=== PATIENT | female | born 1940 | race Caucasian/White ===

== ENCOUNTER 2018-03-13 17:02 | Inpatient (IN) ==
[2018-03-13] MEDS ORDERED: Acetaminophen 500 MG Tablet PO PRN (20:59)
[2018-03-13] MEDS ORDERED: Morphine Sulfate Inj 2 MG/ML Vial IV.PUSH PRN (21:30)
--- NOTE | 2018-03-13 23:40 | P.HPIM ---
[facility] of Present Illness [facility]ician: UNKNOWN Chief Complaint: Dizziness History of Present Illness: Ms. Gracia is a pleasant 78-year-old female with a history of atrial fibrillation, anorexia, hyperlipidemia, hypertension, type 2 diabetes mellitus, and dementia who presented to the emergency room and [facility] with her daughter who reported that she had been weak with nausea and vomiting 1 week. Patient was found to have a troponin I of 24.1 and a CK-MB of 12.2 and was transferred to [facility] for treatment and management of NSTEMI. The patient is seen on the [facility] with no family at her bedside. She tells me that she has been experiencing dizziness for the past 2 days. She denies any syncope, chest pain, shortness of breath, palpitations, fever, chills, nausea, vomiting, or diarrhea. She denies any urinary symptoms. She reports that she has had problems off and on with dizziness for years and that her dizziness has now resolved. She is a limited historian because of her dementia. She denies any family history of coronary artery disease. . Inpatient Certification: I certify that the inpatient services were ordered in accordance with Medicare regulations governing the order. This includes certification that hospital inpatient services are reasonable and necessary and in the case of services not specified as inpatient-only under 42 CFR 419.22(n), that they are appropriately provided as inpatient services in accordance to with the 2-midnight benchmark under 43 CFR 412.3(e) Estimated Total Length of Stay (Days): 3 Plans for Post Hospital Care: Not yet determined Review of Systems All other systems reviewed negative except as stated in [facility] - History History Provided By: Patient, Family Member - Medical History Medical History: Medical History (Last Reviewed 03/14/18 @ 00:17 by VERONICA Robledo) Afib Anorexia Cholecystectomy planned Hyperlipidemia Hypertension Memory loss Type 2 diabetes mellitus - Surgical History Surgical History: Surgical History (Last Reviewed 03/14/18 @ 00:17 by VERONICA Robledo) S/P breast lumpectomy S/P thyroid biopsy - Family History Family History: Family History (Last Updated 03/14/18 @ 00:17 by VERONICA Robledo) Other No family history of coronary artery disease - Tobacco History Second Hand Smoke Exposure: No Smoking Status: Never smoker - Alcohol History How Often Do You Have a Drink Containing Alcohol: Monthly or less - Substance Use History Substance History: No History of Abuse Medications and Allergies Active Medications: Active Medications Acetaminophen (Tylenol) 500 mg PO Q4H PRN PRN Reason: HEADACHE Aspirin (Aspirin) 325 mg PO DAILY ADELE Famotidine (Pepcid) 10 mg PO BID ADELE Sodium Chloride (Ns Inj) 1,000 mls @ 75 mls/hr IV.CONT .[id number] [facility] Heparin Sodium/Dextrose (Heparin/D5w 25,000 U/250 Ml) 25,000 unit in 250 mls @ 0 mls/hr IV.CONT TITRATE PRN; Protocol PRN Reason: Per Protocol Morphine Sulfate (Morphine Inj) 2 mg IV.PUSH Q3H PRN PRN Reason: PAIN SCALE 6 TO 10 Nitroglycerin (Nitrostat Sl) 0.4 mg SL Q5M PRN PRN Reason: ANGINA Sodium Chloride (Ns Flush) 2 ml IV.FLUSH BID ADELE Sodium Chloride (Ns Flush) 2 ml IV.FLUSH PRN PRN PRN Reason: FLUSH AFTER USING IV ACCESS Allergies Allergy/AdvReac Type Severity Reaction Status Date / Time No Known Allergies Allergy Verified 03/13/18 18:00 Home Medications Medication Instructions Recorded Confirmed Type digoxin [Digitek] 0.125 mg PO DAILY 03/13/18 03/13/18 History losartan 25 mg PO DAILY 03/13/18 03/13/18 History lovastatin 20 mg PO DAILY 03/13/18 03/13/18 History megestrol 40 mg PO TID 03/13/18 03/13/18 History memantine [Namenda] 5 mg PO DAILY 03/13/18 03/13/18 History metformin 500 mg PO DAILY 03/13/18 03/13/18 History prochlorperazine maleate 5 mg PO Q6-8H PRN 03/13/18 03/13/18 History Exam Vital signs: Intake & Output 03/13/18 03/13/18 03/14/18 06:59 18:59 06:59 Weight 43.3 kg Narrative: GENERAL: This is a cachectic elderly female patient, in no apparent distress. SKIN: No rashes. Cool and dry. HEAD: Atraumatic. Normocephalic. EYES: No scleral icterus. No injection or drainage. ENT: Nose without bleeding, purulent drainage. NECK: Trachea midline. No JVD. CARDIOVASCULAR: Regular rate and rhythm with 2 out of 6 systolic murmur heard throughout precordium but best auscultated at cardiac apex. RESPIRATORY: Clear to auscultation. Breath sounds equal bilaterally. No wheezes , rales, or rhonchi. GASTROINTESTINAL: Abdomen soft, non-tender, nondistended. No guarding. MUSCULOSKELETAL: Extremities without clubbing, cyanosis, or edema. No calf tenderness. NEUROLOGICAL: Awake and alert. Motor and sensory grossly within normal limits. Normal speech. . Results - Labs Labs: WBC 12.5, hemoglobin 14.1, hematocrit 41.0, platelet 223 Sodium 138, potassium 4.4, BUN 42, creatinine 1.40, glucose 317, magnesium 2.3, phosphate 3.7 AST elevated at 137, ALT normal at 35 T CK 673, CK-MB percent 12.2, troponin I 24.1 Caprini VTE Risk Assessment Caprini VTE Risk Assessment: Moderate/High Risk (score >= 2) Caprini Risk Assessment Model: Point Value = 1 Point Value = 2 Point Value = 3 Point Value = 5 Age 41-60 Minor surgery BMI > 25 kg/m2 Swollen legs Varicose veins or History of unexplained or recurrent spontaneous Oral contraceptives or hormone replacement Sepsis (< 1 month) Serious lung disease, including pneumonia (< 1 month) Abnormal pulmonary function Acute myocardial infarction Congestive heart failure (< 1 month) History of inflammatory bowel disease Medical patient at bed rest Age 61-74 Arthroscopic surgery Major open surgery (> 45 min) Laparoscopic surgery (> 45 min) Malignancy Confined to bed (> 72 hours) Immobilizing plaster cast Central venous access Age >= 75 History of VTE Family history of VTE Factor V Leiden Prothrombin [id number] Lupus anticoagulant Anticardiolipin antibodies Elevated serum homocysteine Heparin-induced thrombocytopenia Other congenital or acquired thrombophilia Stroke (< 1 month) Elective arthroplasty Hip, pelvis, or leg fracture Acute spinal cord injury (< 1 month) Prophylaxis Regimen: Total Risk Factor Score Risk Level Prophylaxis Regimen 0-1 Low Early ambulation 2 Moderate Order ONE of the following: *Sequential Compression Device (SCD) *Heparin 5000 units SQ BID 3-4 Higher Order ONE of the following medications: *Heparin 5000 units SQ TID *Enoxaparin/Lovenox 40 mg SQ daily (WT < 150 kg, CrCl > 30 mL/min) *Enoxaparin/Lovenox 30 mg SQ daily (WT < 150 kg, CrCl > 10-29 mL/min) *Enoxaparin/Lovenox 30 mg SQ BID (WT < 150 kg, CrCl > 30 mL/min) AND/OR *Sequential Compression Device (SCD) 5 or more Highest Order ONE of the following medications: *Heparin 5000 units SQ TID (Preferred with Epidurals) *Enoxaparin/Lovenox 40 mg SQ daily (WT < 150 kg, CrCl > 30 mL/min) *Enoxaparin/Lovenox 30 mg SQ daily (WT < 150 kg, CrCl > 10-29 mL/min) *Enoxaparin/Lovenox 30 mg SQ BID (WT < 150 kg, CrCl > 30 mL/min) AND *Sequential Compression Device (SCD) Assessment and Plan - Plan Ms. Gracia is a pleasant 78-year-old female with a history of atrial fibrillation, anorexia, hyperlipidemia, hypertension, type 2 diabetes mellitus, and dementia who presented to the emergency room and [place] with her daughter who reported that she had been weak with nausea and vomiting 1 week. Patient was found to have a troponin I of 24.1 and a CK-MB of 12.2 and was transferred to [facility] for treatment and management of NSTEMI. NSTEMI -Consult cardiology-appreciate assistance; ER physician discussed case with Dr. Manzo via telephone -Heparin drip -As needed nitroglycerin and morphine for pain -n.p.o. -Continuous cardiac telemetry to monitor for arrhythmia -Serial EKGs and cardiac enzymes - initial troponin I 24.1 - continue to trend; EKG personally reviewed - shows NSR with nonspecific twave abnormalities ALICIA secondary to dehydration -BUN 42, creatinine 1.40 -IV fluid hydration with normal saline at 75 cc/hour -Repeat BMP in a.m. and monitor renal function and electrolytes -Avoid nephrotoxins as much as possible Abnormal UA -Patient asymptomatic for UTI, afebrile, normal heart rate - but has a mildly elevated WBC (see below) -await urine culture results for further treatment- patient received one dose of Keflex in [place] ED Leukocytosis - hemoconcentration vs stress vs infection -repeat CBC in a.m. DVT prophylaxis -Heparin drip Discussed Condition With: Patient, RN, and Dr. Nielson
[2018-03-13] MEDS ORDERED: Dextrose 50% in Water 50 ML Vial IV.PUSH PRN (23:41)
[2018-03-14 02:58] LABS: Hematocrit 37.2 % (35.0-46.0); Mean Corpuscular HGB Conc 34.9 % (32.0-36.0); Mean Corpuscular Hemoglobin 31.6 pg (27.0-34.0); Mean Corpuscular Volume 90.6 fL (80.0-100.0); Red Blood Count 4.11 mil/mm3 (4.00-5.30); Red Cell Distribution Width 13.7 % (11.6-17.2); White Blood Count 12.9 th/mm3 (4.0-11.0)
[2018-03-14 02:59] LABS: Baso % (Auto) 0.2 % (0.0-2.0); Eos % (Auto) 0.2 % (0.0-4.0); Lymph % (Auto) 11.6 % (9.0-44.0); Mean Platelet Volume 9.8 fL (7.0-11.0); Mono % (Auto) 10.8 % (0.0-8.0); Neut % (Auto) 77.2 % (16.0-70.0); Platelet Count 176 th/mm3 (150-450)
[2018-03-14 03:00] LABS: Lymph # (Auto) 1.5 th/mm3 (1.0-4.8); Mono # (Auto) 1.4 th/mm3 (0.0-0.9)
[2018-03-14 03:14] LABS: Anion Gap 10 meq/L (5-15); Carbon Dioxide 25.1 meq/L (21.0-32.0); Chloride 105 meq/L (98-107); Potassium 3.8 meq/L (3.5-5.1); Sodium 140 meq/L (136-145)
[2018-03-14 03:15] LABS: Alanine Aminotransferase 27 U/L (10-53); Aspartate Aminotransferase 96 U/L (15-37); Blood Urea Nitrogen 38 mg/dL (7-18); Calcium 8.3 mg/dL (8.5-10.1); Creatine Kinase 401 U/L (26-192); Glomerular Filtration Rate 48 mL/min (>89); Glucose,Random 218 mg/dL (74-106)
[2018-03-14 03:16] LABS: Albumin 3.2 g/dL (3.4-5.0); Total Protein 6.4 g/dL (6.4-8.2)
[2018-03-14 03:17] LABS: Alkaline Phosphatase 33 U/L (45-117)
[2018-03-14 03:59] LABS: INR 1.2 Ratio; Prothrombin Time 12.2 sec (9.8-11.6)
[2018-03-14] MEDS: Sod Chloride 0.9% Inj 1,000 ML IV.CONT SCH ×2 (04:35→12:49)
[2018-03-14] MEDS: Insulin NovoLOG Aspart Correctional Sugar Inj SQ SCH ×5 (04:36→21:45)
[2018-03-14] MEDS: Famotidine 20 MG Tablet PO SCH ×3 (04:37→21:09)
[2018-03-14 05:45] LABS: Troponin I 20.6 ng/mL (0.02-0.05)
[2018-03-14 08:15] LABS: Creatine Kinase MB 41.6 ng/mL (0.5-3.6)
[2018-03-14 08:20] LABS: CKMB Percent 10.4 % (0.0-4.0)
[2018-03-14] MEDS: Aspirin 325 MG Tablet PO SCH (09:13)
--- NOTE | 2018-03-14 11:05 | MB ---
cc: Noel Manzo MD DATE: 03/14/2018 REASON FOR CONSULTATION: [id number] myocardial infarction. HISTORY OF PRESENT ILLNESS: The patient is a pleasant 78-year-old woman who is an extremely poor historian. I was called from the [facility] yesterday. The emergency room physician notified me that the patient presented with vague abdominal symptoms; no real chest pain, but had elevated troponins. She was sent to be admitted at [place] for a [id number] MS. This morning, the patient looks very well. She is completely asymptomatic. She cannot tell me exactly why she presented to the hospital yesterday. PAST MEDICAL HISTORY: Unclear as the patient is a very poor historian. Past medical history per the chart includes AFib, hyperlipidemia, hypertension, memory loss, diabetes. CURRENT MEDICATIONS: 1. Aspirin 325 mg daily. 2. Pepcid. 3. Heparin drip. ALLERGIES: NO KNOWN DRUG ALLERGIES. PHYSICAL EXAMINATION: VITAL SIGNS: Afebrile, pulse 60, respiratory rate 16, BP 106/54, saturating 99 on room air. GENERAL: Pleasant, elderly woman, in no distress. NECK: No JVD. LUNGS: Clear to auscultation bilaterally. CARDIOVASCULAR: Regular rate and rhythm, a 3/6 systolic murmur is appreciated both at the apex and right upper sternal border. ABDOMEN: Benign. EXTREMITIES: No edema. LABORATORY DATA: White count 12.9, hematocrit 37.2, platelets 176. Sodium 140, potassium 3.8, chloride 105, bicarbonate 25.1, BUN 38, creatinine 1.1, glucose 218. Cardiac enzymes are positive with troponin peaking at 22.5. INR is 1.2. EKG shows sinus rhythm with occasional PVCs and nonspecific ST changes. IMPRESSION: [id number] myocardial infarction. The patient presents with apparently vague abdominal symptoms and laboratory data consistent with an acute ST-elevation myocardial infarction. I do not currently know the patient's cardiac history other than what was written in the chart, as there is no one available to speak with me. Regardless, the patient appears well enough for cardiac catheterization and given her very high troponin elevation. I think it is reasonable. I will ask my partner, Dr. Garcia to evaluate for this. Thank you for the opportunity to participate in this patient's care. MD nAa Gardiner , 09:04 AM , 09:10 AM
[2018-03-14] MEDS ORDERED: diazePAM 5 MG Tablet PO SCH (11:30)
--- NOTE | 2018-03-14 12:54 | P.PN ---
Subjective Interval history: Follow-up non-ST elevation [place] March 14, 2018-she is seen in the presence of her daughter and son-in-law, no report of any chest pain or abdominal discomfort this a.m. Per daughter, patient had an appointment with pulmonary medicine for evaluation of her lung spots. Denies any history of hemoptysis. Physical Exam Vital signs: Vital Signs 03/14/18 00:00 03/14/18 00:37 03/14/18 01:00 Temperature 98.9 F Pulse Rate 88 102 H 86 Respiratory Rate 18 Blood Pressure 117/60 Pulse Oximetry 91 L 03/14/18 02:00 03/14/18 03:00 03/14/18 04:00 Temperature 97.4 F L Pulse Rate 86 81 80 Respiratory Rate 18 Blood Pressure 106/51 L Pulse Oximetry 97 03/14/18 05:00 03/14/18 06:00 03/14/18 07:00 Temperature Pulse Rate 76 78 80 Respiratory Rate Blood Pressure Pulse Oximetry 03/14/18 07:55 03/14/18 08:00 03/14/18 09:00 Temperature 97.4 F L Pulse Rate 60 80 80 Respiratory Rate 16 Blood Pressure 106/54 L Pulse Oximetry 99 03/14/18 10:00 Temperature Pulse Rate 76 Respiratory Rate Blood Pressure Pulse Oximetry Intake & Output 03/13/18 03/14/18 03/14/18 18:59 06:59 18:59 Intake Total 120 / 120 Output Total 400 / 400 Balance -280 / -280 Weight 43.3 kg Intake: Oral 120 / 120 Output: Urine 400 / 400 Other: Date of Last Bowel Movement 03/13/18 Narrative: GENERAL: NAD SKIN: Warm and dry. HEAD: Normocephalic. EYES: No scleral icterus. No injection or drainage. NECK: Supple, trachea midline. No JVD or lymphadenopathy. CARDIOVASCULAR: Regular rate and rhythm without murmurs, gallops, or rubs. RESPIRATORY: Breath sounds equal bilaterally. No accessory muscle use. GASTROINTESTINAL: Abdomen soft, non-tender, nondistended. MUSCULOSKELETAL: No cyanosis, or edema. BACK: Nontender without obvious deformity. No CVA tenderness. Results - Labs CBC & Chem 7: 03/14/18 02:09 03/14/18 02:09 Laboratory Results - last 24 hr 03/13/18 03/14/18 03/14/18 02:09 02:09 02:09 WBC 12.9 H RBC 4.11 Hgb 13.0 Hct 37.2 MCV 90.6 MCH 31.6 MCHC 34.9 RDW 13.7 Plt Count 176 MPV 9.8 Neut % (Auto) 77.2 H Lymph % (Auto) 11.6 [place] % (Auto) 10.8 H Eos % (Auto) 0.2 Baso % (Auto) 0.2 Neut # (Auto) 10.0 H Lymph # (Auto) 1.5 [place] # (Auto) 1.4 H Eos # (Auto) 0.0 Baso # (Auto) 0.0 WBC Differential . Differential Comment Auto diff final PT 12.2 H INR 1.2 APTT Sodium 140 Potassium 3.8 Chloride 105 Carbon Dioxide 25.1 Anion Gap 10 BUN 38 H Creatinine 1.10 H Estimated GFR 48 L POC Glucose Random Glucose 218 H Calcium 8.3 L D Total Bilirubin 0.6 AST 96 H ALT 27 Alkaline Phosphatase 33 L Total Creatine Kinase 401 H CK-MB (CK-2) 41.6 H CK-MB (CK-2) % 10.4 H* Troponin I 22.50 H* D Total Protein 6.4 D Albumin 3.2 L D 03/14/18 03/14/18 03/14/18 02:09 03:55 04:31 WBC RBC Hgb Hct MCV MCH MCHC RDW Plt Count MPV Neut % (Auto) Lymph % (Auto) [place] % (Auto) Eos % (Auto) Baso % (Auto) Neut # (Auto) Lymph # (Auto) [place] # (Auto) Eos # (Auto) Baso # (Auto) WBC Differential Differential Comment PT INR APTT 31.0 H D Sodium Potassium Chloride Carbon Dioxide Anion Gap BUN Creatinine Estimated GFR POC Glucose 190 H Random Glucose Calcium Total Bilirubin AST ALT Alkaline Phosphatase Total Creatine Kinase 373 H CK-MB (CK-2) CK-MB (CK-2) % Troponin I 20.60 H* D Total Protein Albumin 03/14/18 03/14/18 08:03 12:40 WBC RBC Hgb Hct MCV MCH MCHC RDW Plt Count MPV Neut % (Auto) Lymph % (Auto) [place] % (Auto) Eos % (Auto) Baso % (Auto) Neut # (Auto) Lymph # (Auto) [place] # (Auto) Eos # (Auto) Baso # (Auto) WBC Differential Differential Comment PT INR APTT Sodium Potassium Chloride Carbon Dioxide Anion Gap BUN Creatinine Estimated GFR POC Glucose 224 H 316 H Random Glucose Calcium Total Bilirubin AST ALT Alkaline Phosphatase Total Creatine Kinase CK-MB (CK-2) CK-MB (CK-2) % Troponin I Total Protein Albumin Assessment and Plan - Plan 78-year-old female with NSTEMI -Appreciate input from cardiology and plan for left heart catheterization tomorrow March 15, 2018 -Continue with heparin drip, aspirin, Lipitor, beta-nolvia, as needed nitroglycerin and morphine for pain -Check 2D echo ALICIA secondary to dehydration -IV fluid hydration with normal saline at 75 cc/hour -monitor renal function and electrolytes -Avoid nephrotoxins as much as possible Abnormal UA -Patient asymptomatic for UTI and urine culture remain negative, therefore will hold on starting any antibiotics History of lung spot vs nodule -Advised patient and family to follow outpatient with pulmonary medicine as scheduled DVT prophylaxis -Heparin drip
--- NOTE | 2018-03-14 14:07 | ECG ---
Date Performed: 03/14/2018 Time Performed: 02:20:26 PTAGE: 78 years EKG: Sinus rhythm Anterolateral T wave changes are nonspecific Borderline ECG PREVIOUS TRACING : 03/13/2018 @19.50 Since the previous tracing, no significant change noted DOCTOR: Noel Manzo Interpretating Date/Time 03/14/2018 14:06:25
--- NOTE | 2018-03-14 14:09 | ECG ---
Date Performed: 03/14/2018 Time Performed: 06:50:52 PTAGE: 78 years EKG: Sinus rhythm Anterolateral ST-T changes may be due to myocardial ischemia Low QRS voltages in precordial leads Ab normal ECG PREVIOUS TRACING :03/14/2018 @02.20 Since the previous tracing, no significant change noted DOCTOR: Noel Manzo Interpretating Date/Time 03/14/2018 14:07:15
--- NOTE | 2018-03-14 15:17 | ECHRPT ---
Indication: CORONARY ATHEROSCLEROSIS CONCLUSIONS Normal left ventricular size. Wall thickness is normal. The left ventricular systolic function is normal with an estimated ejection fraction in the range of 55-60%. Anteroapical hypokinesis The left atrial size is mildly dilated. Posterior mitral valve leaflet prolapse. severe mitral valve regurgitation. The mitral valve regurgitation jet is directed anteriorly. Systolic anterior motion of the chordae attached to the aniyah valve. LVOT obsttruction by systolic anterior obstruction of the mitral valve. 39 mmHg mean gradient across LVOT Aortic valve sclerosis is present. There is mild tricuspid valve regurgitation. The estimated pulmonary arterial pressure is 38.9 mmHg. There is a trivial anterior pericardial effusion. BP: / HR: Rhythm: Sinus MEASUREMENTS (Male / Female) Normal Values Technical Quality:Fair 2D ECHO LV Diastolic Diameter PLAX 3.7 cm 4.2 - 5.9 / 3.9 - 5.3 cm LV Systolic Diameter PLAX 2.8 cm IVS Diastolic Thickness 1.0 cm 0.6 - 1.0 / 0.6 - 0.9 cm LVPW Diastolic Thickness 1.0 cm 0.6 - 1.0 / 0.6 - 0.9 cm LV Relative Wall Thickness 0.5 RV Internal Dim ED PLAX 1.9 cm LVOT Diameter 1.5 cm Aortic Root Diameter 2.5 cm LA Systolic Diameter LX 2.4 cm 3.0 - 4.0 / 2.7 - 3.8 cm M-MODE AV Cusp Separation MM 1.7 cm DOPPLER AV Peak Velocity 419.5 cm/s AV Peak Gradient 70.4 mmHg AV Mean Gradient 30.0 mmHg AV Velocity Time Integral 69.0 cm LVOT Peak Velocity 236.0 cm/s LVOT Peak Gradient 22.3 mmHg LVOT Velocity Time Integral 35.1 cm AV Area Cont Eq vti 0.9 cm AV Area Cont Eq pk 1.0 cm LV E' Lateral Velocity 6.7 cm/s LV E' Septal Velocity 8.8 cm/s TR Peak Velocity 269.0 cm/s TR Peak Gradient 28.9 mmHg Right Atrial Pressure 10.0 mmHg Pulmonary Artery Systolic Pressu 38.9 mmHg Right Ventricular Systolic Press 38.9 mmHg PV Peak Velocity 82.0 cm/s PV Peak Gradient 2.7 mmHg FINDINGS LEFT VENTRICLE Normal left ventricular size. Wall thickness is normal. The left ventricular systolic function is normal with an estimated ejection fraction in the range of 55-60%. There is distinct regional wall motion abnormalities. LVOT obsttruction by systolic anterior obstruction of the mitral valve. 39 mmHg mean across LVOT RIGHT VENTRICLE Normal right ventricular size and systolic function. LEFT ATRIUM The left atrial size is mildly dilated. RIGHT ATRIUM The right atrial size is normal. ATRIAL SEPTUM No atrial level shunt is demonstrated by color flow Doppler interrogation. AORTA The aortic root and proximal ascending aorta are normal in size on limited imaging. MITRAL VALVE Posterior mitral valve leaflet prolapse. [id number] mitral valve regurgitation. The mitral valve regurgitation jet is directed anteriorly. Systolic anterior motion of the chordae attached to the aniyah valve. AORTIC VALVE Aortic valve sclerosis is present. TRICUSPID VALVE There is mild tricuspid valve regurgitation. The estimated pulmonary arterial pressure is 38.9 mmHg. PULMONARY VALVE No pulmonary valve regurgitation or stenosis. VESSELS The inferior vena cava is normal in size. PERICARDIUM There is a trivial anterior pericardial effusion. Noel Manzo MD (Electronically Signed) Final Date:14 March 2018 15:15
--- NOTE | 2018-03-14 17:08 | MB ---
cc: Nathan Garcia MD DATE: 03/14/2018 REASON FOR CONSULTATION: Cardiac catheterization. HISTORY OF PRESENT ILLNESS: The patient is a 78-year-old white female with a history of diabetes, hypertension, hyperlipidemia, paroxysmal atrial fibrillation, who was brought to the hospital by her daughter mainly due to complaints of generalized malaise, generalized weakness, and lightheadedness. The patient had multiple episodes of nausea and vomiting 3 days ago and since that time has not felt well. The patient's daughter noticed she was rubbing her chest periodically 2 days ago. She has also noted that the patient has had increased dyspnea on exertion, which has been progressively worsening over the last few months. There has been no paroxysmal nocturnal dyspnea, pedal edema, palpitations, syncope, or near syncope. At the present time, the patient is resting comfortably, feeling "fine," denying chest pain, shortness of breath, dizziness, or nausea. PAST MEDICAL HISTORY: 1. Diabetes. 2. Hypertension. 3. Hyperlipidemia. 4. Paroxysmal atrial fibrillation. CARDIAC MEDICATIONS AT HOME: 1. Lovastatin 20 mg at bedtime. 2. Losartan 25 mg daily. 3. Digoxin 0.125 mg daily. ALLERGIES: NO KNOWN DRUG ALLERGIES. FAMILY HISTORY: Noncontributory. The patient's brother did sustain a myocardial infarction in his late 60s. SOCIAL HISTORY: The patient denies any history of alcohol or tobacco abuse. REVIEW OF SYSTEMS: As in the history of present illness, otherwise negative or noncontributory. She also denies headache, abdominal pain, melena, dyspepsia, bright red blood per rectum, or fevers. PHYSICAL EXAMINATION: VITAL SIGNS: Blood pressure 106/54 with a pulse of 76, respirations 16. GENERAL: She is a well-developed, thin white female in no acute distress. NECK: Jugular venous pressure is normal. Carotid pulses are 2+ bilaterally and without bruits. CHEST: Reveals clear lung wolff. CARDIAC: She has a regular rhythm and rate without S3, S4. There is a grade II/ diffuse systolic murmur. Normal S2. ABDOMEN: She has a soft, nontender abdomen. Bowel sounds are present. There is no definite hepatosplenomegaly. EXTREMITIES: Reveals no clubbing, cyanosis, or edema. Peripheral pulses are normal throughout. LABORATORY DATA: Includes WBC 12.9, hemoglobin 13.0, platelets 176,000. Potassium 3.8, BUN 38, creatinine 1.10. AST 96, ALT 27. CK 401 with 10.4% MB fraction. Troponin 22.50. DIAGNOSTIC DATA: Chest x-ray shows no acute disease. EKG from 03/14/2018 at 6:50 a.m. shows sinus rhythm, diffuse nonspecific ST and T-wave abnormalities. IMPRESSION: Acute non-ST elevation myocardial infarction in the 78-year-old white female with a history of diabetes, hypertension, hyperlipidemia, and paroxysmal atrial fibrillation. At this point, I would agree with the need for cardiac catheterization. She probably has multivessel coronary artery disease. EKG shows overall nonspecific ST abnormalities. The patient is somewhat of a poor historian. Her daughter did notice her clutching her chest periodically over the last 2 days. The patient has a number of risk factors for coronary disease. The nature of cardiac catheterization and the potential risks including, but not limited to , myocardial infarction, stroke, arrhythmia, bleeding, infection, and renal failure have been outlined to the patient and her daughter. They agree to proceed. RECOMMENDATIONS: 1. Cardiac catheterization tomorrow. 2. Continue heparin drip, aspirin, and beta nolvia therapy. MD EMNA Aguirre/thad , 11:24 AM , 11:33 AM [email or web address]
[2018-03-14] MEDS: Heparin Drip 25,000 UNIT/250 ML BAG IV.CONT PRN (17:30)
[2018-03-14] MEDS: Metoprolol Tartrate 25 MG Tablet PO SCH (21:09)
[2018-03-15] MEDS: Sod Chloride 0.9% Inj 1,000 ML IV.CONT SCH ×5 (01:51→22:12)
[2018-03-15] MEDS: Insulin NovoLOG Aspart Correctional Sugar Inj SQ SCH ×5 (04:36→22:12)
[2018-03-15] MEDS: Heparin Drip 25,000 UNIT/250 ML BAG IV.CONT PRN (05:22)
[2018-03-15 06:44] LABS: Hematocrit 31.7 % (35.0-46.0); Hemoglobin 11.2 gm/dL (11.6-15.3); Mean Corpuscular HGB Conc 35.2 % (32.0-36.0); Mean Corpuscular Hemoglobin 32.1 pg (27.0-34.0); Mean Corpuscular Volume 91.3 fL (80.0-100.0); Mean Platelet Volume 10.1 fL (7.0-11.0); Platelet Count 129 th/mm3 (150-450); Red Blood Count 3.47 mil/mm3 (4.00-5.30); Red Cell Distribution Width 13.7 % (11.6-17.2); White Blood Count 7.3 th/mm3 (4.0-11.0)
[2018-03-15] MEDS: Metoprolol Tartrate 25 MG Tablet PO SCH ×2 (09:55→20:48)
[2018-03-15] MEDS: Aspirin 325 MG Tablet PO SCH (09:55)
[2018-03-15] MEDS: Famotidine 20 MG Tablet PO SCH ×2 (09:57→20:48)
--- NOTE | 2018-03-15 10:33 | P.PN ---
Subjective Interval history: Follow-up non-ST elevation DC March 14, 2018-she is seen in the presence of her daughter and son-in-law, no report of any chest pain or abdominal discomfort this a.m. Per daughter, patient had an appointment with pulmonary medicine for evaluation of her lung spots. Denies any history of hemoptysis. March 15, 2018-patient seen and examined, currently n.p.o. pending left heart catheterization this morning. Denies any chest pain or shortness of breath. Denies associated abdominal pain. State, her daughter is suffering from a case of food poisoning Physical Exam Vital signs: Vital Signs 03/14/18 11:00 03/14/18 12:00 03/14/18 14:00 Temperature 97.5 F L Pulse Rate 80 79 83 Respiratory Rate 18 Blood Pressure 95/51 L Pulse Oximetry 97 03/14/18 15:00 03/14/18 16:00 03/14/18 17:00 Temperature 97.4 F L Pulse Rate 81 77 72 Respiratory Rate 18 Blood Pressure 96/55 L Pulse Oximetry 99 03/14/18 18:00 03/14/18 19:00 03/14/18 20:00 Temperature 97.5 F L Pulse Rate 84 83 82 Respiratory Rate 16 Blood Pressure 103/54 L Pulse Oximetry 99 03/14/18 21:00 03/14/18 22:00 03/14/18 23:00 Temperature Pulse Rate 96 H 66 69 Respiratory Rate Blood Pressure Pulse Oximetry 03/14/18 23:42 03/15/18 00:00 03/15/18 01:00 Temperature 98.6 F Pulse Rate 68 76 84 Respiratory Rate 16 Blood Pressure 91/48 L Pulse Oximetry 96 03/15/18 02:00 03/15/18 03:00 03/15/18 04:00 Temperature 98.9 F Pulse Rate 72 71 74 Respiratory Rate 16 Blood Pressure 109/59 L Pulse Oximetry 94 L 03/15/18 05:00 03/15/18 06:00 03/15/18 08:00 Temperature 99.1 F Pulse Rate 80 77 83 Respiratory Rate 12 Blood Pressure 114/57 L Pulse Oximetry 94 L Intake & Output 03/14/18 03/15/18 03/15/18 18:59 06:59 18:59 Intake Total 1940 / 1940 390 / 390 Output Total 500 / 500 500 / 500 Balance 1440 / 1440 -110 / -110 Weight 43.2 kg Intake: IV 1000 / 1000 150 / 150 Heparin/D5W 25,000 U/250 mL 25, 150 / 150 000 unit In 250 ml @ Per Protocol IV.CONT TITRATE PRN Rx #:[id number] NS Inj 1,000 ML @ 75 mls/hr IV. 1000 / 1000 CONT .[id number] ADELE Rx#:[id number] Oral 940 / 940 240 / 240 Output: Urine 500 / 500 500 / 500 Other: Date of Last Bowel Movement 03/14/18 # Bowel Movements 2 1 Narrative: GENERAL: NAD SKIN: Warm and dry. HEAD: Normocephalic. EYES: No scleral icterus. No injection or drainage. NECK: Supple, trachea midline. No JVD or lymphadenopathy. CARDIOVASCULAR: Regular rate and rhythm without murmurs, gallops, or rubs. RESPIRATORY: Breath sounds equal bilaterally. No accessory muscle use. GASTROINTESTINAL: Abdomen soft, non-tender, nondistended. MUSCULOSKELETAL: No cyanosis, or edema. BACK: Nontender without obvious deformity. No CVA tenderness. Results - Labs CBC & Chem 7: 03/15/18 05:02 03/14/18 02:09 Laboratory Results - last 24 hr 03/14/18 03/14/18 03/14/18 12:40 15:51 16:50 WBC RBC Hgb Hct MCV MCH MCHC RDW Plt Count MPV APTT 30.6 H POC Glucose 316 H 246 H 03/14/18 03/14/18 03/15/18 21:07 23:25 05:02 WBC 7.3 RBC 3.47 L Hgb 11.2 L Hct 31.7 L MCV 91.3 MCH 32.1 MCHC 35.2 RDW 13.7 Plt Count 129 L MPV 10.1 APTT 38.4 H D POC Glucose 210 H 03/15/18 03/15/18 03/15/18 05:02 09:10 09:32 WBC RBC Hgb Hct MCV MCH MCHC RDW Plt Count MPV APTT 37.6 H POC Glucose 153 H 143 H Assessment and Plan - Plan 78-year-old female with NSTEMI -Appreciate input from cardiology and plan for left heart catheterization today March 15, 2018 -Continue with heparin drip, aspirin, Lipitor, beta-nolvia, as needed nitroglycerin and morphine for pain -2D echo pending ALICIA secondary to dehydration -IV fluid hydration with normal saline at 75 cc/hour -monitor renal function and electrolytes -Avoid nephrotoxins as much as possible Abnormal UA -Patient asymptomatic for UTI and urine culture remain negative, therefore changing to hold on starting any antibiotics History of lung spot vs nodule -Advised patient and family to follow outpatient with pulmonary medicine as scheduled DVT prophylaxis -Heparin drip
[2018-03-15] MEDS ORDERED: Heparin/NS PF Inj 1,000 ML ONE (16:13)
[2018-03-15] MEDS ORDERED: fentaNYL Citrate Inj 100 MCG/2 ML Ampul ONE (16:15)
[2018-03-15 16:30] LABS: Hemoglobin A1c 8.7 % (4.3-6.0)
[2018-03-15] MEDS ORDERED: Heparin 10,000 UNITS/10 ML Vial (for IV use) ONE (16:34)
[2018-03-15] MEDS ORDERED: Tirofiban Inj 12,500 MCG/250 ML PLAST..BAG ONE (16:34)
[2018-03-15] MEDS ORDERED: Tirofiban Inj 12,500 MCG/250 ML PLAST..BAG IV.CONT SCH (17:00)
[2018-03-15] MEDS ORDERED: Sod Chloride 0.9% Inj 1,000 ML IV.CONT SCH (17:00)
--- NOTE | 2018-03-15 17:18 | CATHPROC ---
Ciafo HIS Report Study Information Study Number Admission Scheduled Start Study Start [id number] Mar 13 2018 11:00PM 03/15/2018 Mar 15 2018 4:08PM [place] [facility] Electrophysiology Study Admit Source Facility Department Other [facility] Physician and Clinical Staff Initial Nathan Guillen Zone Supervisor Firearms Gautam Horowitz,JACKLYN Zone Supervisor Firearms Rubia Fierro,JACKLYN Recorder Ciara Dan ,RT(R) Scrub Darrell Clement,RT(R) Procedures Performed Procedure Location (Site) Vessel Name Angiogram LV LV Ventricle Coronary Angiograms LCA Left Coronary Coronary Angiograms RCA Right Coronary Drug Eluting Inflatio LAD Prox Left Coronary PTCA LAD Prox Left Coronary Wire insertion Fem Art (right) Femoral Art Equipment Time Weight Tester Description Size Mfg Part Number Used/Scraped [id number] 16:34 [employer] WIRE, ASAHI PROWATER 180CM 180CM Used *[id number] TRANSDUCER, TRUWAVE [id number] 16:10 MATTHEW MCKENZIE * Used W/STOCKCOCK *[id number] *[id number] [id number] *[id number] [id number] *[id number] *[id number] 16:47 DAIG/[employer] ANGIOSEAL, FR6 VIP FR 6 Used *[id number] 16:10 [employer] BLANKET,WARM AIR CCL * Used *[id number] 16:10 [employer] PACK, CCL CUSTOM * Used *[id number] 16:10 [employer] PACER PEN, SKIN DUAL W/ RULER * Used *[id number] 16:41 MEDTRON[employer] BALLOON, 2.5 X 15MM EUPHORA 15MM Used *[id number] 16:44 [employer] STENT, 2.5 18MM CORNELIUS 2.5 18MM Used *[id number] 16:43 alooma 30 FELIBERTO INDEFLATOR Used *[id number] 16:10 [employer] SHEATH, FR6.5 PRELUDE 11CM FR 6.5 038ACT Used *[id number] 16:10 [employer] WIRE, 3MMJ .035 180CM 180CM Used *[id number] 16:10 [facility] MANIFOLD, 4 PORT * Used *[id number] TUBING, PRESSURE INJECTION [id number] 16:30 NAMIC 72" Used 72" *[id number] 16:10 [employer]COMED OMNIPAQUE, 350 MG, 150ML 150ML [id number] Used Equipment Model, Serial, Lot Number and Expiration Data Description Model Number Serial Number Lot Number Expiration Date ANGIOSEAL, [place] [employer]OWN [id number] 11-16-2018 STENT, 2.5 18MM CORNELIUS [id number] 07-17-2019 History: Current Medications Medication Dosage/Unit Route Frequency Last Date/Time Taken ASA Beta Darvin Statins (any) History: Allergies Allergy Reaction No Known Allergies History: Risk Factors Family History of Hypertension Dyslipidemia Previous MD Previous Heart Failure Premature CAD Yes Yes No No No Prior Valve Prior PCI Prior CABG Surgery No No No Cerebrovascular Peripheral Artery Chronic Lung On Dialysis Diabetes Diabetes Therapy Disease Disease Disease No No No No Yes Oral History: Stress Tests Stress or Imaging Studies Performed No History: Other Current Smoker No Labs Hgb (g/dl) Hct (%) WBC (l/cumm) Platelets (thousands) 11.60-17.00 35.00-51.00 4.00-11.00 150.00-450.00 11.2 31.7 7.3 129 Glucose (mg/dl) BUN (mg/dl) Creatinine (mg/dl) BUN:Creatinine (1:x) 74.00-106.00 7.00-18.00 0.50-1.30 10.00-20.00 125 38 1.1 34.5 Na (meq/l) K (meq/l) 136.00-145.00 3.50-5.10 140 3.8 INR (PTT:PT) 0.90-1.10 1.2 Troponin I (ng/ml) CPK (u/l) CPK-MB (ng/ML) 0.02-0.05 26.00-308.00 0.50-3.60 20.6 373 10.4 Medication Medication Total Dose (Bolus/Oral) Medication Total Dosage/Unit 1% XYLOCAINE 15 mL AGGRASTAT BOLUS 21 mL HEPARIN 2600 units PLAVIX 300 mg VERSED 1 mg Medications (Bolus/Oral) Medication Time Given Dosage/Unit Administered By Reason 1% XYLOCAINE 03/15/2018 4:25:06 PM 15 mL Nathan Garcia 15 mL 1% XYLOCAINE given in lab by Nathan Garcia via Subcutaneous. Ordered by Nathan Garcia. HEPARIN 03/15/2018 4:36:53 PM 2600 units Nathan Garcia 2600 units HEPARIN given in lab by Nathan Garcia via Peripheral IV. Ordered by Nathan Garcia. VERSED 03/15/2018 4:38:11 PM 1 mg Rubia Fierro 1 mg VERSED given in lab by Rubia Fierro RN via Peripheral IV. Ordered by Nathan Garcia. AGGRASTAT BOLUS 03/15/2018 4:41:35 PM 21 mL Rubia Fierro 21 mL AGGRASTAT BOLUS given in lab by Rubia Fierro RN via Peripheral IV. Ordered by Nathan Garcia. PLAVIX 03/15/2018 4:53:19 PM 300 mg Rubia Fierro 300 mg PLAVIX given in lab by Rubia Fierro RN via Oral. Ordered by Nathan Garcia. Medication (Drip) Medication Time Given Dosage/Unit Concentration/Unit Diluent (ml) Solution AGGRASTAT DRIP 03/15/2018 4:43:05 PM 0.15 mcg/kg/min 12.5 mg 250 NaCl .9 0.15 mcg/kg/min AGGRASTAT DRIP given in lab by Rubia Fierro RN via Peripheral IV. Pump/Drip Flow = 7.8 ml/hr using NaCl .9 with a concentration of 12.5 mg in 250 ml. Ordered by Nathan Garcia. IV Solutions 03/15/2018 4:08:34 PM 50 mL (IV) NaCl .9 Patient arrived on IV Solutions via Peripheral IV. Pump/Drip Flow using NaCl .9. Initial Case Assessment Cardiovascular HR NIBP Chest Pain 79 119/60 0 Edema Present Skin color Skin None Normal Warm Dry Circulatory - Right Pulses Dorsalis Pedis Femoral 1 3 Scale (0,1,2,3,4,d) Circulatory - Left Pulses Dorsalis Pedis Femoral 1 3 Scale (0,1,2,3,4,d) Circulatory - Lower Extremities Color Lower Right Color Lower Left Normal Normal Neurological State Oriented to time-place- Alert Moves all extremities person Respiration - General Respiration Rate SpO2 (%) (B/min) 4 94 Chronological Log Time Study Chronological Log 16:08:23 Patient arrived via Bed. 16:08:24 Patient Name, D.O.B, / Armband Verified By R.N. 16:08:25 Consent signed by the physician and the patient and verified by the [facility] staff. 16:08:26 Pre-op and post- op instructions given; patient acknowledges understanding of instructions. 16:08:28 Verbal Stimulation=2 Physical Stimulation=2 Airway=2 Respiration=2 TOTAL=8. (0=absent, 1=li mited, 2=present) 16:08:30 Patient has been NPO for More than 6Hrs. 16:08:31 Skin Breakdown- none per patient 16:08:31 Patient Warmer Placed on the Table. 16:08:32 Adela Prominences Protected 16:08:33 A # 20 IV was noted in the Antecubital (left). Grade = 0 16:08:34 Patient arrived on IV Solutions via Peripheral IV. Pump/Drip Flow using NaCl .9. Assessment: Initial Case, HR=79 BPM, OHML=027/60 mmhg, Chest Pain=0, Edema=None, Color=Normal, Skin = Warm, Dry Right Pulses: Rudi Ped=1, Femoral=3 Left Pulses: Rudi Ped=1, Femoral=3 16:08:36 Lower Right Extremities: Color=Normal Lower Left Extremities: Color=Normal Neurological: State=Alert, Ox3, CARTAGENA Respiration: Resp=4 B/min, SpO2=94 % 16:08:36 History and physical on the chart or being dictated. Vitals capture started with the following parameters, Patient=Adult, Interval=5 min, Initial Pr svntji=190 mmHg, 16:11:52 Deflation Rate=5 mmHg, Cuff placed on Left Arm 16:12:35 HR=66 bpm, ZMFT=947/60 mmhg, SpO2=94.0 %, Resp=8 B/min 16:17:22 QG=893 bpm, ABAO=536/112 mmhg, SpO2=94.0 %, Resp=26 B/min 16:21:08 Bilateral groins prepped with 2% chlorhexidine, and draped after a 3 minute waiting time. 16:21:19 MD paged 16:21:20 MD responded 16::40 Reference ECG taken 16::25 Pressure channel 1 zeroed. 16:22:31 HR=86 bpm, ZMOS=994/53 mmhg, SpO2=94.0 %, Resp=22 B/min Time Out. Correct patient, correct procedure, correct physician, labs, allergies, and equipment verified with laborer chicken farm 16::18 team present. Fire risk assesment completed (see hard stop sheet for coding). Time Out Conc urred by MD and individual staff in procedure. 16:25:02 Case Start 16:25:06 15 mL 1% XYLOCAINE given in lab by Nathan Garcia via Subcutaneous. Ordered by Nathan Garcia. 16:25:56 Access site was Right Femoral Artery. 16:26:03 A SHEATH, FR6.5 PRELUDE 11CM FR 6.5 was advanced into the Fem Art (right) using the Percuta neous technique. A JL 4.0 INFINITI CATHETER FR 6 was advanced over a wire. OMNIPAQUE, 350 MG, 150ML 150ML was us ed for 16:26:39 injections. 16:26:58 The LCA was injected and visualized at various angles. OMNIPAQUE, 350 MG, 150ML 150ML used . Recorded Pressure: Ao, HR=77, Condition=Condition 1 16:27:04 (Aorta) Ao 106/48/72 16:27:28 HR=78 bpm, JSXI=488/58 mmhg, SpO2=94.0 %, Resp=20 B/min 16::18 Catheter was removed A 3DRC INFINITI CATHETER FR 5 was advanced over a wire. OMNIPAQUE, 350 MG, 150ML 150ML was used for 16:28:20 injections. 16:29:26 The RCA was injected and visualized at various angles. OMNIPAQUE, 350 MG, 150ML 150ML used . 16:29:40 Catheter was removed A PIGTAIL STR INFINITI CATHETER FR 6 was advanced over a wire. OMNIPAQUE, 350 MG, 150ML 150ML w as used for 16:31:08 injections. Recorded Pressure: LV, HR=93, Condition=Condition 1 16:31:45 (Left Ventricle) LV 137/3/24 16:32:12 The LV was injected at 12 cc/sec for a total of 38. OMNIPAQUE, 350 MG, 150ML 150ML used. 16:32:29 HR=83 bpm, GPTS=035/54 mmhg, SpO2=92.0 %, Resp=25 B/min Recorded Pressure: LV, Ao, HR=87, Condition=Condition 1 16:33:10 (Left Ventricle) LV 103/1/18, (Aorta) Ao 109/37/66 16:34:21 Catheter was removed A XB 3.5 GUIDE CATHETER FR 6 was advanced over a wire. OMNIPAQUE, 350 MG, 150ML 150ML was used for 16:34:38 injections. 16:36:38 A WIRE, ASAHI PROWATER 180CM 180CM was inserted via Fem Art (right). 16:36:53 2600 units HEPARIN given in lab by Nathan Garcia via Peripheral IV. Ordered by Nathan Garcia . 16:37:57 HR=84 bpm, MSYG=332/58 mmhg, SpO2=91.0 %, Resp=19 B/min 16:38:11 1 mg VERSED given in lab by Rubia Fierro, JACKLYN via Peripheral IV. Ordered by Nathan Garcia . 16:40:18 Interventional wire has crossed the lesion A BALLOON, 2.5 X 15MM EUPHORA 15MM was inserted over WIRE, ASAHI PROWATER 180CM 180CM via the Fem Art 16:41:28 (right). 16:41:35 21 mL AGGRASTAT BOLUS given in lab by Rubia Fierro, RN via Peripheral IV. Ordered by Nathan Lindsey. A BALLOON, 2.5 X 15MM EUPHORA 15MM over a WIRE, ASAHI PROWATER 180CM 180CM in the LAD Prox was inflated 16:42:23 using a 30 FELIBERTO INDEFLATOR at 8 feliberto for 20 sec. 16:42:29 HR=84 bpm, EQXI=791/55 mmhg, SpO2=86.0 %, Resp=32 B/min 0.15 mcg/kg/min AGGRASTAT DRIP given in lab by Rubia Fierro, RN via Peripheral IV. Pump/Dri p Flow = 7.8 ml/hr 16:43:05 using NaCl .9 with a concentration of 12.5 mg in 250 ml. Ordered by Nathan Garcia. 16:44:17 Balloon Removed. 16:44:32 Activated Clotting Time Drawn A STENT, 2.5 18MM CORNELIUS 2.5 18MM was advanced through a XB 3.5 GUIDE CATHETER FR 6 over a WIRE, ASAHI 16:44:41 PROWATER 180CM 180CM. A STENT, 2.5 18MM CORENLIUS 2.5 18MM was deployed using a 30 FELIBERTO INDEFLATOR at 13 atmospheres for 3 0 seconds in 16:45:32 the LAD Prox. 16:47:12 Delivery device removed 16:47:17 Wire removed 16:47:27 Catheter was removed 16:47:31 Case End (Physician broke scrub) 16:47:54 An injection in the Fem Art (right) was made through the SHEATH, FR6.5 PRELUDE 11CM FR 6.5 . 16:48:05 HR=86 bpm, QHAI=079/64 mmhg, SpO2=96.0 %, Resp=16 B/min, Pain=0, Dusty=10, [place]=2 16:52:29 HR=84 bpm, CYVX=097/67 mmhg, SpO2=97.0 %, Resp=8 B/min, Pain=0, Dusty=10, [place]=2 16:53:19 300 mg PLAVIX given in lab by Rubia Fierro, JACKLYN via Oral. Ordered by Nathan Garcia. End Study - Contrast Media Used In Study Contrast Total Opened (mL) Total Used (mL) Total Wasted (mL) Omnipaque 80 80 0 End Study - Maximum Contrast Load Max Contrast Load (mL) 196.3 End Study - Radiation Exposure Fluoro Time (minutes) 5.1 End Study - Patient Disposition Complications Transferred To Interventional Outcome No Telemetry Bed successful
[2018-03-15] MEDS ORDERED: Iohexol 350 MG/ML 100 ML Vial (for Cath Lab) IVCONTRAST ONE (17:44)
[2018-03-16] MEDS: Insulin NovoLOG Aspart Correctional Sugar Inj SQ SCH ×5 (06:12→21:52)
[2018-03-16] MEDS: Sod Chloride 0.9% Inj 1,000 ML IV.CONT SCH ×2 (06:12→18:53)
[2018-03-16 06:45] LABS: Baso % (Auto) 0.2 % (0.0-2.0); Eos % (Auto) 0.3 % (0.0-4.0); Hematocrit 37.5 % (35.0-46.0); Hemoglobin 13.1 gm/dL (11.6-15.3); Lymph # (Auto) 0.6 th/mm3 (1.0-4.8); Lymph % (Auto) 7.3 % (9.0-44.0); Mean Corpuscular Hemoglobin 31.9 pg (27.0-34.0); Mean Platelet Volume 10.1 fL (7.0-11.0); Mono # (Auto) 0.8 th/mm3 (0.0-0.9); Mono % (Auto) 9.1 % (0.0-8.0); Neut # (Auto) 7.2 th/mm3 (1.8-7.7); Neut % (Auto) 83.1 % (16.0-70.0); Platelet Count 162 th/mm3 (150-450); Red Blood Count 4.11 mil/mm3 (4.00-5.30); Red Cell Distribution Width 13.7 % (11.6-17.2); White Blood Count 8.7 th/mm3 (4.0-11.0)
[2018-03-16 07:07] LABS: Calcium 8.2 mg/dL (8.5-10.1); Carbon Dioxide 22.7 meq/L (21.0-32.0)
[2018-03-16 07:15] LABS: Potassium 2.7 meq/L (3.5-5.1)
--- NOTE | 2018-03-16 07:25 | MA ---
cc: Nathan Garcia MD DATE: 03/15/2018 PROCEDURES: Left heart catheterization, selective coronary angiography, left ventriculography, angioplasty and stent of the proximal LAD. PROCEDURE IN DETAIL: The patient was brought to the cardiac catheterization laboratory in a fasting state after having signed informed consent. The right groin was prepped and draped as per policy and anesthetized with 1% lidocaine. Arterial access was obtained via the right femoral artery and a 6-Malaysian sheath placed. Coronary arteriography was performed using 6-Malaysian Shen, left 4.0 and right progressive catheters. Left ventriculography was done using a standard 6-Malaysian pigtail. Percutaneous coronary intervention was done as described below. There were no apparent immediate complications. HEMODYNAMIC DATA: Left ventricle 103 with an end-diastolic pressure of 18, aorta 109/37, with a mean of 66. There was no significant transvalvular aortic gradient on pullback of the pigtail catheter. CORONARY ARTERIOGRAPHY: The left main is normal. The left anterior descending has a 60-70% tubular stenosis right after the takeoff of a relatively small diagonal, which is angiographically normal. The mid to distal LAD is angiographically normal. Left circumflex is a relatively small vessel, giving rise to a very small tortuous obtuse marginal. There is up to 15% stenosis in the proximal left circumflex. The right coronary artery is a medium-sized dominant vessel with no disease. LEFT VENTRICULOGRAPHY: Contrast injection of the left ventricle reveals a moderate-sized area of apical akinesis. Ejection fraction is somewhat difficult to estimate. It is roughly 45%. There is moderate, at most moderate to severe, mitral regurgitation. PERCUTANEOUS CORONARY INTERVENTION DESCRIPTION: Aggrastat was given as per protocol. Adequate heparin was given to achieve an ACT of greater than 250 seconds. Using a 6-Malaysian XB 3.5 guiding catheter, the ostium of the left main was reengaged. Using an 0.014 P[place]ater wire, the disease in the proximal LAD was crossed without difficulty and the tip of the wire positioned distally. Predilation was done using a 2.5-mm Euphora balloon catheter. Stenting was done using a 2.5 x 18-mm Resolute [place] stent, which was deployed at 13 atmospheres for 30 seconds. Final angiography shows reduction of the initial stenosis to roughly 0% residual with no definite evidence for dissection or distal embolization. The patient tolerated the procedure well. There were no apparent immediate complications. CONCLUSIONS: 1. Moderate to severe single-vessel coronary artery disease. 2. Status post angioplasty and stent of the proximal left anterior descending. 3. Reduced left ventricular systolic function with ejection fraction roughly estimated at 45% due to a moderate size area of apical akinesis. 4. Moderate, or at most moderate-severe, mitral regurgitation. MD ENMA Aguirre/htad , 04:55 PM , 05:03 PM HAYDEE
--- NOTE | 2018-03-16 08:34 | P.PNCA ---
Subjective Interval history: Somnolent. Denies CP, SOB, dizziness, nausea, abdominal pain. Physical Exam Vital signs: Vital Signs 03/15/18 09:00 03/15/18 10:00 03/15/18 11:00 Temperature Pulse Rate 74 76 69 Respiratory Rate Blood Pressure Pulse Oximetry 03/15/18 12:00 03/15/18 13:00 03/15/18 14:00 Temperature 98.5 F Pulse Rate 76 72 76 Respiratory Rate 12 Blood Pressure 108/64 Pulse Oximetry 97 03/15/18 15:00 03/15/18 16:00 03/15/18 17:00 Temperature 98.3 F Pulse Rate 75 73 84 Respiratory Rate 16 Blood Pressure 103/53 L Pulse Oximetry 96 03/15/18 17:41 03/15/18 18:00 03/15/18 19:00 Temperature Pulse Rate 73 84 82 Respiratory Rate 16 Blood Pressure 103/53 L Pulse Oximetry 96 03/15/18 20:00 03/15/18 21:00 03/15/18 22:00 Temperature Pulse Rate 86 96 H 82 Respiratory Rate Blood Pressure Pulse Oximetry 03/15/18 23:00 03/16/18 00:00 03/16/18 01:00 Temperature 97.2 F L Pulse Rate 92 H 98 H 82 Respiratory Rate 20 Blood Pressure 130/97 H Pulse Oximetry 96 03/16/18 02:00 03/16/18 03:00 03/16/18 04:00 Temperature 93.3 F L Pulse Rate 82 83 82 Respiratory Rate 28 H Blood Pressure 115/55 L Pulse Oximetry 99 03/16/18 05:00 03/16/18 06:00 03/16/18 07:00 Temperature Pulse Rate 92 H 98 H 77 Respiratory Rate Blood Pressure Pulse Oximetry Intake & Output 03/15/18 03/16/18 03/16/18 18:59 06:59 18:59 Intake Total 1210 / 1210 1240 / 1240 Output Total 350 / 350 500 / 500 Balance 860 / 860 740 / 740 Weight 45.6 kg Intake: IV 1010 / 1010 1000 / 1000 Heparin/NS PF Inj 1,000 ML @ 0 10 / 10 mls/hr .ROUTE .[facility] Rx#: [id number] NS Inj 1,000 ML @ 100 mls/hr IV 1000 / 1000 1000 / 1000 .CONT .Q10H ADELE Rx#:[id number] Oral 0 / 0 240 / 240 Anesthesia Amount 200 / 200 Output: Urine 350 / 350 500 / 500 Other: # Incontinent Voids 2 - Constitutional no acute distress - Routine Neck Exam Absent: JVD - Routine Respiratory Exam Present: CTA bilaterally - Routine Cardiovascular Exam Present: RRR, S1, S2. Absent: gallop Comments: I/ systolic murmur along left sternal border and at apex - Routine Abdominal Exam Present: soft, normoactive bowel sounds. Absent: tenderness, organomegaly - Routine Extremities Exam Absent: cyanosis, clubbing, edema Comments: Right femoral arteriotomy site stable, nontender, no significant hematoma. Assessment and Plan - Assessment (1) Coronary artery disease Code(s): I25.10 - Atherosclerotic heart disease of ely shoshone coronary artery without angina pectoris Status: Acute Plan: Status post NSTEMI. Status post stent proximal LAD yesterday. Stable overnight. No definite recurrent angina. Right femoral arteriotomy site stable. OK to discharge today from cardiac standpoint on Plavix and aspirin, beta nolvia, RALPH-I, 4 week f/u with Dr. Manzo. (2) Ischemic cardiomyopathy Code(s): I25.5 - Ischemic cardiomyopathy Status: Acute Plan: EF somewhat difficult to estimate with moderate size area of apical akinesis on left ventriculography. Patient overall stable, compensated. No acute CHF evident. Recommend continue beta nolvia, add low dose enalapril. (3) Hypertrophic obstructive cardiomyopathy Code(s): I42.1 - Obstructive hypertrophic cardiomyopathy Status: Acute Plan: Moderate left ventricular outflow tract gradient ~33 mm Hg demonstrated on echo associated with systolic anterior motion of the mitral valve. Recommend conservative therapy. Continue beta nolvia. (4) Mitral regurgitation Code(s): I34.0 - Nonrheumatic mitral (valve) insufficiency Status: Chronic Plan: Mitral regurgitation seems moderate or at most moderate-severe on cath. Recommend conservative management. Patient not great candidate for open heart surgery. Could consider Mitraclip in future. (5) Paroxysmal atrial fibrillation Code(s): I48.0 - Paroxysmal atrial fibrillation Status: Chronic Plan: Stable. Remains in NSR. Not good candidate for oral anticoagulation therapy. Recommend continue beta nolvia, aspirin. (6) Hypertension Code(s): I10 - Essential (primary) hypertension Status: Acute Plan: Stable. Normotensive mostly. - Plan Code Status: full code (1) Coronary artery disease Qualifiers: Coronary Disease-Associated Artery/Lesion type: ely shosh[place] artery [place] vs. transplanted heart: ely shoshone heart Associated angina: with unstable angina Qualified Code(s): I25.110 - Atherosclerotic heart disease of ely shosh[place] coronary artery with unstable angina pectoris (4) Mitral regurgitation Qualifiers: Cardiac valve disease etiology: etiology unspecified Qualified Code(s): I34.0 - Nonrheumatic mitral (valve) insufficiency (6) Hypertension Qualifiers: Hypertension type: essential hypertension Qualified Code(s): I10 - Essential (primary) hypertension
[2018-03-16] MEDS: Famotidine 20 MG Tablet PO SCH ×2 (09:48→21:41)
[2018-03-16] MEDS: Aspirin 325 MG Tablet PO SCH (09:49)
[2018-03-16] MEDS: Metoprolol Tartrate 25 MG Tablet PO SCH ×2 (09:49→21:41)
[2018-03-16] MEDS ORDERED: Atropine Inj 1 MG/10 ML Syringe ONE (10:11)
--- NOTE | 2018-03-16 10:54 | P.DS ---
Date of admission: 03/13/18 23:00 Primary care physician: UNKNOWN Anticipated date of discharge: 03/16/18 Brief History from admission: Ms. Gracia is a pleasant 78-year-old female with a history of atrial fibrillation, anorexia, hyperlipidemia, hypertension, type 2 diabetes mellitus, and dementia who [facility] with her daughter who reported that she had been weak with nausea and vomiting 1 week. Patient was found to have a troponin I of 24.1 and a CK-MB of 12.2 and was transferred to [facility] for treatment and management of NSTEMI. The patient is seen on the [facility] with no family at her bedside. She tells me that she has been experiencing dizziness for the past 2 days. She denies any syncope, chest pain, shortness of breath, palpitations, fever, chills, nausea, vomiting, or diarrhea. She denies any urinary symptoms. She reports that she has had problems off and on with dizziness for years and that her dizziness has now resolved. She is a limited historian because of her dementia. She denies any family history of coronary artery disease. . DS: Summary Hospital Course: While in hospital, patient was treated for: NSTEMI -Appreciate input from cardiology and s/p left heart catheterization with Stent placed to proximal LAD 03/15/18 -s/p heparin drip, treated aspirin, Lipitor,Plavix, beta-nolvia, enalapril, as needed nitroglycerin and morphine for pain PAF -Not a candidate for OAC, treated with ASA Ischemic cardiomyopathy -Treated beta-nolvia and enalapril Hypokalemia -Give potassium 60 mEq 1 now ALICIA secondary to dehydration -Improved with IV fluid hydration Abnormal UA -Patient asymptomatic for UTI and urine culture remain negative, therefore she was not started on any antibiotics History of lung spot vs nodule -Advised patient and family to follow outpatient with pulmonary medicine as scheduled DVT prophylaxis -Heparin drip - Time Spent with Patient Total time spent providing and/or coordinating discharge services: Greater than 30 minutes - Quality: VTE Deep Vein Thrombosis/Pulmonary Embolism Present on Admission: No Exam Vital signs: Vital Signs 03/15/18 11:00 03/15/18 12:00 03/15/18 13:00 Temperature 98.5 F Pulse Rate 69 76 72 Respiratory Rate 12 Blood Pressure 108/64 Pulse Oximetry 97 03/15/18 14:00 03/15/18 15:00 03/15/18 16:00 Temperature 98.3 F Pulse Rate 76 75 73 Respiratory Rate 16 Blood Pressure 103/53 L Pulse Oximetry 96 03/15/18 17:00 03/15/18 17:41 03/15/18 18:00 Temperature Pulse Rate 84 73 84 Respiratory Rate 16 Blood Pressure 103/53 L Pulse Oximetry 96 03/15/18 19:00 03/15/18 20:00 03/15/18 21:00 Temperature Pulse Rate 82 86 96 H Respiratory Rate Blood Pressure Pulse Oximetry 03/15/18 22:00 03/15/18 23:00 03/16/18 00:00 Temperature 97.2 F L Pulse Rate 82 92 H 98 H Respiratory Rate 20 Blood Pressure 130/97 H Pulse Oximetry 96 03/16/18 01:00 03/16/18 02:00 03/16/18 03:00 Temperature Pulse Rate 82 82 83 Respiratory Rate Blood Pressure Pulse Oximetry 03/16/18 04:00 03/16/18 05:00 03/16/18 06:00 Temperature 93.3 F L Pulse Rate 82 92 H 98 H Respiratory Rate 28 H Blood Pressure 115/55 L Pulse Oximetry 99 03/16/18 07:00 03/16/18 08:00 03/16/18 09:00 Temperature Pulse Rate 77 74 82 Respiratory Rate 12 Blood Pressure 102/55 L Pulse Oximetry 98 03/16/18 10:00 Temperature Pulse Rate 74 Respiratory Rate Blood Pressure Pulse Oximetry Intake & Output 03/15/18 03/16/18 03/16/18 18:59 06:59 18:59 Intake Total 1210 / 1210 1240 / 1240 Output Total 350 / 350 500 / 500 Balance 860 / 860 740 / 740 Weight 45.6 kg Intake: IV 1010 / 1010 1000 / 1000 Heparin/NS PF Inj 1,000 ML @ 0 10 / 10 mls/hr .ROUTE .STK-MED ONE Rx#: [id number] NS Inj 1,000 ML @ 100 mls/hr IV 1000 / 1000 1000 / 1000 .CONT .Q10H [facility] Rx#:[id number] Oral 0 / 0 240 / 240 Anesthesia Amount 200 / 200 Output: Urine 350 / 350 500 / 500 Other: # Incontinent Voids 2 Narrative: GENERAL: NAD SKIN: Warm and dry. HEAD: Normocephalic. EYES: No scleral icterus. No injection or drainage. NECK: Supple, trachea midline. No JVD or lymphadenopathy. CARDIOVASCULAR: Irregular regular rate and rhythm with II/ JORDAN RESPIRATORY: Breath sounds equal bilaterally. No accessory muscle use. GASTROINTESTINAL: Abdomen soft, non-tender, nondistended. MUSCULOSKELETAL: No cyanosis, or edema. BACK: Nontender without obvious deformity. No CVA tenderness. Results Procedures completed during hospitalization: s/p Stent to proximal LAD 03/15/18 Labs on day of discharge: Labs from last 24 hours 03/16/18 03/16/18 03/16/18 08:06 05:21 05:21 WBC 8.7 RBC 4.11 Hgb 13.1 Hct 37.5 MCV 91.0 MCH 31.9 MCHC 35.0 RDW 13.7 Plt Count 162 MPV 10.1 Neut % (Auto) 83.1 H Lymph % (Auto) 7.3 L [place] % (Auto) 9.1 H Eos % (Auto) 0.3 Baso % (Auto) 0.2 Neut # (Auto) 7.2 Lymph # (Auto) 0.6 L [place] # (Auto) 0.8 Eos # (Auto) 0.0 Baso # (Auto) 0.0 WBC Differential . Differential Comment Auto diff final Sodium 142 Potassium 2.7 L* Chloride 105 Carbon Dioxide 22.7 Anion Gap 14 BUN 10 Creatinine 0.83 Estimated GFR 66 L POC Glucose 138 H Random Glucose 137 H Hemoglobin A1c Calcium 8.2 L Total Creatine Kinase 158 03/16/18 03/15/18 03/15/18 04:15 20:57 15:10 WBC RBC Hgb Hct MCV MCH MCHC RDW Plt Count MPV Neut % (Auto) Lymph % (Auto) [place] % (Auto) Eos % (Auto) Baso % (Auto) Neut # (Auto) Lymph # (Auto) [place] # (Auto) Eos # (Auto) Baso # (Auto) WBC Differential Differential Comment Sodium Potassium Chloride Carbon Dioxide Anion Gap BUN Creatinine Estimated GFR POC Glucose 136 H 110 125 H Random Glucose Hemoglobin A1c Calcium Total Creatine Kinase 03/15/18 03/15/18 12:39 05:02 WBC RBC Hgb Hct MCV MCH MCHC RDW Plt Count MPV Neut % (Auto) Lymph % (Auto) [place] % (Auto) Eos % (Auto) Baso % (Auto) Neut # (Auto) Lymph # (Auto) [place] # (Auto) Eos # (Auto) Baso # (Auto) WBC Differential Differential Comment Sodium Potassium Chloride Carbon Dioxide Anion Gap BUN Creatinine Estimated GFR POC Glucose 159 H Random Glucose Hemoglobin A1c 8.7 H Calcium Total Creatine Kinase Discharge Plan - Discharge Disposition Patient Disposition: 03 Discharge to SNF - Discharge Condition Condition: Good - Discharge Order Discharge Orders: Discharge Order (Routine); Ordered 03/16/18 Ordered By: Jose R Gao Cardiology Clear for Discharge (Routine); Ordered 03/16/18 Ordered By: Nathan Garcia - Discharge Details Anticipated Discharge Date: 03/16/18 - Physicians Team Primary Care Provider: UNKNOWN, Attending Provider: Jose R Gao Other Providers: Noel Manzo MD - Rxs /Orders / Referrals /Forms Prescriptions: New aspirin 325 mg Tablet 325 mg PO DAILY Qty: 30 RF: 0 atorvastatin 20 mg Tablet 20 mg PO HS Qty: 30 RF: 0 clopidogrel [Plavix] 75 mg Tablet 75 mg PO DAILY Qty: 30 RF: 0 enalapril maleate 2.5 mg Tablet 2.5 mg PO DAILY Qty: 30 RF: 0 metoprolol tartrate 25 mg Tablet 12.5 mg PO BID Qty: 60 RF: 0 Continue digoxin [Digitek] 250 mcg Tablet 0.125 mg PO DAILY megestrol 40 mg Tablet 40 mg PO TID memantine [Namenda] 5 mg Tablet 5 mg PO DAILY metformin 500 mg Tablet Extended Release 24 Hr 500 mg PO DAILY prochlorperazine maleate 5 mg Tablet 5 mg PO Q6-8H PRN (Reason: Vomiting) Discontinued losartan 25 mg Tablet 25 mg PO DAILY lovastatin 20 mg Tablet 20 mg PO DAILY Referrals: Noel Manzo MD [Physician] - See Instructions UNKNOWN, [Primary Care Provider] - See Instructions - Discharge Instructions Patient Printed Instructions: Heart Catheterization (DC)
--- NOTE | 2018-03-16 10:54 | P.PN ---
Subjective Interval history: Follow-up non-ST elevation OR March 14, 2018-she is seen in the presence of her daughter and son-in-law, no report of any chest pain or abdominal discomfort this a.m. Per daughter, patient had an appointment with pulmonary medicine for evaluation of her lung spots. Denies any history of hemoptysis. March 15, 2018-patient seen and examined, currently n.p.o. pending left heart catheterization this morning. Denies any chest pain or shortness of breath. Denies associated abdominal pain. State, her daughter is suffering from a case of food poisoning March 16, 2018-patient seen and examined, she had stent placed to proximal LAD yesterday. Per nurse report, patient was confused overnight requiring restraint however currently she is off restraints. Physical Exam Vital signs: Vital Signs 03/15/18 11:00 03/15/18 12:00 03/15/18 13:00 Temperature 98.5 F Pulse Rate 69 76 72 Respiratory Rate 12 Blood Pressure 108/64 Pulse Oximetry 97 03/15/18 14:00 03/15/18 15:00 03/15/18 16:00 Temperature 98.3 F Pulse Rate 76 75 73 Respiratory Rate 16 Blood Pressure 103/53 L Pulse Oximetry 96 03/15/18 17:00 03/15/18 17:41 03/15/18 18:00 Temperature Pulse Rate 84 73 84 Respiratory Rate 16 Blood Pressure 103/53 L Pulse Oximetry 96 03/15/18 19:00 03/15/18 20:00 03/15/18 21:00 Temperature Pulse Rate 82 86 96 H Respiratory Rate Blood Pressure Pulse Oximetry 03/15/18 22:00 03/15/18 23:00 03/16/18 00:00 Temperature 97.2 F L Pulse Rate 82 92 H 98 H Respiratory Rate 20 Blood Pressure 130/97 H Pulse Oximetry 96 03/16/18 01:00 03/16/18 02:00 03/16/18 03:00 Temperature Pulse Rate 82 82 83 Respiratory Rate Blood Pressure Pulse Oximetry 03/16/18 04:00 03/16/18 05:00 03/16/18 06:00 Temperature 93.3 F L Pulse Rate 82 92 H 98 H Respiratory Rate 28 H Blood Pressure 115/55 L Pulse Oximetry 99 03/16/18 07:00 03/16/18 08:00 03/16/18 09:00 Temperature Pulse Rate 77 74 82 Respiratory Rate 12 Blood Pressure 102/55 L Pulse Oximetry 98 03/16/18 10:00 Temperature Pulse Rate 74 Respiratory Rate Blood Pressure Pulse Oximetry Intake & Output 03/15/18 03/16/18 03/16/18 18:59 06:59 18:59 Intake Total 1210 / 1210 1240 / 1240 Output Total 350 / 350 500 / 500 Balance 860 / 860 740 / 740 Weight 45.6 kg Intake: IV 1010 / 1010 1000 / 1000 Heparin/NS PF Inj 1,000 ML @ 0 10 / 10 mls/hr .ROUTE .STK-MED ONE Rx#: [id number] NS Inj 1,000 ML @ 100 mls/hr IV 1000 / 1000 1000 / 1000 .CONT .Q10H [facility] Rx#:[id number] Oral 0 / 0 240 / 240 Anesthesia Amount 200 / 200 Output: Urine 350 / 350 500 / 500 Other: # Incontinent Voids 2 Narrative: GENERAL: NAD SKIN: Warm and dry. HEAD: Normocephalic. EYES: No scleral icterus. No injection or drainage. NECK: Supple, trachea midline. No JVD or lymphadenopathy. CARDIOVASCULAR: Irregular regular rate and rhythm with II/ JORDAN RESPIRATORY: Breath sounds equal bilaterally. No accessory muscle use. GASTROINTESTINAL: Abdomen soft, non-tender, nondistended. MUSCULOSKELETAL: No cyanosis, or edema. BACK: Nontender without obvious deformity. No CVA tenderness. Results - Labs CBC & Chem 7: 03/16/18 05:21 03/16/18 05:21 Laboratory Results - last 24 hr 03/15/18 03/15/18 03/15/18 05:02 12:39 15:10 WBC RBC Hgb Hct MCV MCH MCHC RDW Plt Count MPV Neut % (Auto) Lymph % (Auto) [place] % (Auto) Eos % (Auto) Baso % (Auto) Neut # (Auto) Lymph # (Auto) [place] # (Auto) Eos # (Auto) Baso # (Auto) WBC Differential Differential Comment Sodium Potassium Chloride Carbon Dioxide Anion Gap BUN Creatinine Estimated GFR POC Glucose 159 H 125 H Random Glucose Hemoglobin A1c 8.7 H Calcium Total Creatine Kinase 03/15/18 03/16/18 03/16/18 20:57 04:15 05:21 WBC 8.7 RBC 4.11 Hgb 13.1 Hct 37.5 MCV 91.0 MCH 31.9 MCHC 35.0 RDW 13.7 Plt Count 162 MPV 10.1 Neut % (Auto) 83.1 H Lymph % (Auto) 7.3 L [place] % (Auto) 9.1 H Eos % (Auto) 0.3 Baso % (Auto) 0.2 Neut # (Auto) 7.2 Lymph # (Auto) 0.6 L [place] # (Auto) 0.8 Eos # (Auto) 0.0 Baso # (Auto) 0.0 WBC Differential . Differential Comment Auto diff final Sodium Potassium Chloride Carbon Dioxide Anion Gap BUN Creatinine Estimated GFR POC Glucose 110 136 H Random Glucose Hemoglobin A1c Calcium Total Creatine Kinase 03/16/18 03/16/18 05:21 08:06 WBC RBC Hgb Hct MCV MCH MCHC RDW Plt Count MPV Neut % (Auto) Lymph % (Auto) [place] % (Auto) Eos % (Auto) Baso % (Auto) Neut # (Auto) Lymph # (Auto) [place] # (Auto) Eos # (Auto) Baso # (Auto) WBC Differential Differential Comment Sodium 142 Potassium 2.7 L* Chloride 105 Carbon Dioxide 22.7 Anion Gap 14 BUN 10 Creatinine 0.83 Estimated GFR 66 L POC Glucose 138 H Random Glucose 137 H Hemoglobin A1c Calcium 8.2 L Total Creatine Kinase 158 - Procedures s/p Stent to proximal LAD 03/15/18 Assessment and Plan - Plan 78-year-old female with NSTEMI -Appreciate input from cardiology and plan for left heart catheterization today March 15, 2018 -s/p heparin drip, continue aspirin, Lipitor,Plavix, beta-nolvia, enalapril, as needed nitroglycerin and morphine for pain -s/p Stent to proximal LAD 03/15/18 PAF -Not a candidate for OAC, continue with ASA Ischemic cardiomyopathy -Continue beta-nolvia and enalapril Hypokalemia -Give potassium 60 mEq 1 now ALICIA secondary to dehydration -IV fluid hydration with normal saline at 75 cc/hour -monitor renal function and electrolytes -Avoid nephrotoxins as much as possible Abnormal UA -Patient asymptomatic for UTI and urine culture remain negative, therefore continue to hold on starting any antibiotics History of lung spot vs nodule -Advised patient and family to follow outpatient with pulmonary medicine as scheduled DVT prophylaxis -Heparin drip
--- NOTE | 2018-03-16 11:06 | P.DCO ---
- Diagnosis (2) Mitral regurgitation - Physical Therapy Order: Evaluate and treat - Home Health Nursing Order: Signs/symptoms of disease process, Nursing assessment with vital signs - Certification I have seen patient Deborah Gracia on 03/16/18. My clinical findings support the need for the requested home health care services because: Patient has SOB, Deconditioned with increased weakness I certify that my clinical findings support that this patient is homebound because: Poor cardiac reserve (2) Mitral regurgitation Qualifiers: Cardiac valve disease etiology: etiology unspecified Qualified Code(s): I34.0 - Nonrheumatic mitral (valve) insufficiency
[2018-03-17] MEDS: Sod Chloride 0.9% Inj 1,000 ML IV.CONT SCH (03:12)
[2018-03-17] MEDS: Insulin NovoLOG Aspart Correctional Sugar Inj SQ SCH ×2 (03:12→09:44)
[2018-03-17] MEDS: Famotidine 20 MG Tablet PO SCH (09:27)
[2018-03-17] MEDS: Aspirin 325 MG Tablet PO SCH (09:28)
[2018-03-17] MEDS: Metoprolol Tartrate 25 MG Tablet PO SCH (11:21)
--- NOTE | 2018-03-17 11:32 | P.PN ---
Subjective Interval history: Patient was kept overnight due to episode of bradycardia, however stable this morning. Alert and oriented 3. Physical Exam Vital signs: Vital Signs 03/16/18 12:00 03/16/18 13:00 03/16/18 14:00 Temperature 97.4 F L Pulse Rate 73 69 80 Respiratory Rate 16 Blood Pressure 111/73 Pulse Oximetry 97 03/16/18 15:00 03/16/18 16:00 03/16/18 17:00 Temperature 98.0 F Pulse Rate 73 80 66 Respiratory Rate Blood Pressure 111/57 L Pulse Oximetry 97 03/16/18 18:00 03/16/18 19:00 03/16/18 20:00 Temperature 98.7 F Pulse Rate 93 H 76 78 Respiratory Rate 16 Blood Pressure 104/65 Pulse Oximetry 98 03/16/18 21:00 03/16/18 22:00 03/16/18 23:00 Temperature Pulse Rate 74 74 75 Respiratory Rate Blood Pressure Pulse Oximetry 03/17/18 00:00 03/17/18 01:00 03/17/18 02:00 Temperature 99.2 F Pulse Rate 74 74 68 Respiratory Rate 20 Blood Pressure 105/63 Pulse Oximetry 95 03/17/18 03:00 03/17/18 04:00 03/17/18 05:00 Temperature 98.4 F Pulse Rate 79 72 70 Respiratory Rate 20 Blood Pressure 119/64 Pulse Oximetry 93 L 03/17/18 06:00 03/17/18 07:00 03/17/18 08:00 Temperature 98.5 F Pulse Rate 54 L 67 75 Respiratory Rate 16 Blood Pressure 128/66 Pulse Oximetry 95 03/17/18 09:00 03/17/18 10:00 03/17/18 11:00 Temperature Pulse Rate 81 74 81 Respiratory Rate Blood Pressure Pulse Oximetry Intake & Output 03/16/18 03/17/18 03/17/18 18:59 06:59 18:59 Intake Total 435 / 435 240 / 240 Output Total 400 / 400 150 / 150 Balance 35 / 35 90 / 90 Weight 45.6 kg Intake: IV 135 / 135 Oral 300 / 300 240 / 240 Output: Urine 400 / 400 150 / 150 Other: # Voids 2 Date of Last Bowel Movement 03/16/18 # Bowel Movements 1 Narrative: GENERAL: NAD SKIN: Warm and dry. HEAD: Normocephalic. EYES: No scleral icterus. No injection or drainage. NECK: Supple, trachea midline. No JVD or lymphadenopathy. CARDIOVASCULAR: Irregular regular rate and rhythm with II/ JORDAN RESPIRATORY: Breath sounds equal bilaterally. No accessory muscle use. GASTROINTESTINAL: Abdomen soft, non-tender, nondistended. MUSCULOSKELETAL: No cyanosis, or edema. BACK: Nontender without obvious deformity. No CVA tenderness. Results - Labs CBC & Chem 7: 03/16/18 05:21 03/16/18 05:21 Laboratory Results - last 24 hr 03/16/18 03/16/18 03/16/18 11:54 16:10 21:49 POC Glucose 182 H 151 H 207 H 03/17/18 03/17/18 03:52 07:20 POC Glucose 121 H 133 H - Procedures s/p Stent to proximal LAD 03/15/18 Assessment and Plan - Assessment (1) NSTEMI (non-ST elevated myocardial infarction) Code(s): I21.4 - Non-ST elevation (NSTEMI) myocardial infarction Status: Acute (2) Mitral regurgitation Code(s): I34.0 - Nonrheumatic mitral (valve) insufficiency Status: Chronic (3) Paroxysmal atrial fibrillation Code(s): I48.0 - Paroxysmal atrial fibrillation Status: Chronic (4) Ischemic cardiomyopathy Code(s): I25.5 - Ischemic cardiomyopathy Status: Acute - Plan 78-year-old female with NSTEMI -Appreciate input from cardiology and plan for left heart catheterization today March 15, 2018 -s/p heparin drip, continue aspirin, Lipitor,Plavix, beta-nolvia, enalapril, as needed nitroglycerin and morphine for pain -s/p Stent to proximal LAD 03/15/18 PAF -Not a candidate for OAC, continue with ASA Ischemic cardiomyopathy -Continue beta-nolvia and enalapril Hypokalemia -Give potassium 60 mEq 1 on March 16, 2018 ALICIA secondary to dehydration -IV fluid hydration with normal saline at 75 cc/hour -monitor renal function and electrolytes -Avoid nephrotoxins as much as possible Abnormal UA -Patient asymptomatic for UTI and urine culture remain negative, therefore continue to hold on starting any antibiotics History of lung spot vs nodule -Advised patient and family to follow outpatient with pulmonary medicine as scheduled DVT prophylaxis -Heparin We will proceed with discharge as ordered (2) Mitral regurgitation Qualifiers: Cardiac valve disease etiology: etiology unspecified Qualified Code(s): I34.0 - Nonrheumatic mitral (valve) insufficiency
[2018-03-17] MEDS ORDERED: Metoprolol Tartrate 25 MG Tablet PO SCH (21:00)
== END 2018-03-17 13:21 | disposition home health service (06) ==
LOC: NEDDLT 17:02 → HCIS 23:00
PROVIDERS: ADMIT Hospitalist; ATTEND Hospitalist